=== PATIENT | male | born 1940 | race Caucasian/White ===

== ENCOUNTER 2016-11-06 19:30 | Observation (INO) | payer OTHER ==
[2016-11-06] MEDS ORDERED: RANITIDINE 50 MG/2 ML VIAL IVP ONE (19:37)
[2016-11-06] MEDS ORDERED: methylPREDNISolone SOD SUCC 125 MG/2 ML VIAL IVP ONE (19:37)
[2016-11-06] MEDS ORDERED: NS 1,000 ML IV ONE (19:38)
--- NOTE | 2016-11-06 19:40 | EDPHY ---
H & P Time Seen by Provider: 11/06/16 19:37 HPI/ROS: CHIEF COMPLAINT: Wasp sting HISTORY OF PRESENT ILLNESS: The patient is a 76-year-old man who was stung by 10-12 wasps while he was trying to cut down the branch of a tree. This happened about a half an hour ago. He is complaining mainly of pain at the sting sites. No urticaria. No trouble breathing. He has never had any allergies in the past. He denies any heart conditions. He is mildly diaphoretic. No nausea or GI symptoms. He was stung several times on the head , a couple times on the face and then also on the foot. REVIEW OF SYSTEMS: Constitutional: denies: chills, fever, recent illness, recent injury EENTM: denies: blurred vision, double vision, nose congestion Respiratory: denies: cough, shortness of breath Cardiac: denies: chest pain, irregular heart rate, lightheadedness, palpitations Gastrointestinal/Abdominal: denies: abdominal pain, diarrhea, nausea, vomiting, blood streaked stools Genitourinary: denies: dysuria, frequency, hematuria, pain Musculoskeletal: denies: joint pain, muscle pain Skin: See HPI Neurological: denies: headache, numbness, paresthesia, tingling, dizziness, weakness Hematologic/Lymphatic: denies: blood clots, easy bleeding, easy bruising Immunologic/allergic: denies: HIV/AIDS, transplant EXAM: GENERAL: Diaphoretic, significant distress HEAD: Atraumatic, normocephalic. EYES: Pupils equal round and reactive to light, extraocular movements intact, sclera anicteric, conjunctiva are normal. ENT: TMs normal, nares patent, oropharynx clear without exudates. Moist mucous membranes. NECK: Normal range of motion, supple without lymphadenopathy or JVD. LUNGS: Breath sounds clear to auscultation bilaterally and equal. No wheezes rales or rhonchi. HEART: Regular rate and rhythm without murmurs, rubs or gallops. ABDOMEN: Soft, nontender, normoactive bowel sounds. No guarding, no rebound. No masses appreciated. BACK: No CVA tenderness, no spinal tenderness, step-offs or deformities EXTREMITIES: Normal range of motion, no pitting or edema. No clubbing or cyanosis. NEUROLOGICAL: Cranial nerves II through XII grossly intact. Normal speech, normal gait. 5/5 strength, normal movement in all extremities, normal sensation PSYCH: Normal mood, normal affect. SKIN: Several small sites of stay insect bite/sting. Mild erythema on foot and chest. Source: Patient Exam Limitations: No limitations - Medical/Surgical History Hx Asthma: No Hx Chronic Respiratory Disease: No Hx Diabetes: No Hx Cardiac Disease: No Hx Renal Disease: No Hx Cirrhosis: No Hx Alcoholism: No - Family History Significant Family History: No pertinent family hx - Social History Alcohol Use: Sober Drug Use: None Constitutional: Initial Vital Signs Temperature (C) 36.6 C 11/06/16 19:52 Heart Rate 160 H 11/06/16 19:52 Respiratory Rate 24 H 11/06/16 19:52 Blood Pressure 74/60 L 11/06/16 19:52 O2 Sat (%) 92 11/06/16 19:52 O2 Delivery Mode Nasal Cannula O2 (L/minute) 2 Allergies/Adverse Reactions: No Known Allergies Allergy (Verified 11/06/16 21:16) Home Medications: Medication Instructions Recorded Aspirin [Aspirin 81mg (*)] 81 mg PO EVERY OTHER DAY 11/06/16 metroNIDAZOLE [Metrogel] 1 gm TP DAILY 11/06/16 Medical Decision Making - Diagnostics EKG Interpretation: An EKG obtained and was read and documented in trace view. Please see trace view for full reading and report. Atrial fibrillation rate of 140, right bundle. Patient was already aware of the right bundle but states never had atrial fibrillation before. ED Course/Re-evaluation: The patient is in shock. He is tachycardic and hypotensive. IV was began and he was started on IV fluids, epinephrine, Solu-Medrol and antihistamines. His blood pressure is improving. He states that he is starting to feel better. 8:30 p.m. the patient is feeling much better. His blood pressure is currently 150/90. Heart rate is 120 and regular. I am concerned that he had a severe reaction and may have rebound when the medication wears off. I recommended admission and he agrees. I discussed the case with Dr. Juan Chatman and Dr. Estrada. They will admit to the medical service. They do not recommend anticoagulation at this time. Differential Diagnosis: Partial list of the Differential diagnosis considered include but were not limited to; anaphylaxis, envenomation and although unlikely based on the history and physical exam, I also considered sepsis, head injury. Critical Care Time: Critical care time spent by me, Dr. Beach exclusive with this patient was 35 minutes, exclusive of the PA time exclusive of procedures. The organ system that was at risk was cardiovascular and I gave IV fluids, monitoring medications and admission to prevent worsening of the patient's condition - Data Points Laboratory Results: Laboratory Results 11/06/16 19:50 11/06/16 19:50 Medications Given: Discontinued Medications Diphenhydramine HCl (Benadryl Injection) 25 mg IVP EDNOW ONE Stop: 11/06/16 19:38 Last Admin: 11/06/16 19:51 Dose: 25 mg Enoxaparin Sodium (Lovenox) 40 mg SC DAILY [facility] Stop: 05/06/17 08:59 Last Admin: 11/07/16 08:45 Dose: 40 mg Epinephrine HCl (Epinephrine) 0.3 mg IM EDNOW ONE Stop: 11/06/16 19:38 Last Admin: 11/06/16 19:51 Dose: 0.3 mg Sodium Chloride (Ns) 1,000 mls @ 0 mls/hr IV EDNOW ONE; Wide Open PRN Reason: Protocol Stop: 11/06/16 19:39 Last Admin: 11/06/16 19:50 Dose: 1,000 mls Sodium Chloride (Ns) 1,000 mls @ 100 mls/hr IV CONT CHATA Stop: 05/05/17 22:29 Last Admin: 11/06/16 23:26 Dose: 1,000 mls Lorazepam (Ativan) 0.5 - 1 mg PO Q8HRS PRN PRN Reason: Anxiety, Able to Take PO Stop: 05/05/17 22:15 Last Admin: 11/07/16 03:02 Dose: 0.5 mg Methylprednisolone Sodium Succinate (Solu-Medrol) 125 mg IVP EDNOW ONE Stop: 11/06/16 19:38 Last Admin: 11/06/16 19:50 Dose: 125 mg Prednisone (Prednisone) 60 mg PO DAILY [facility] Stop: 05/06/17 08:59 Last Admin: 11/07/16 08:46 Dose: 60 mg Ranitidine HCl (Zantac) 50 mg IVP EDNOW ONE Stop: 11/06/16 19:38 Last Admin: 11/06/16 19:51 Dose: 50 mg Departure - Departure Disposition: [facility] Acute Clinical Impression: Acute anaphylaxis Qualifiers: Encounter type: initial encounter Qualified Code(s): T78.2XXA - Anaphylactic shock, unspecified, initial encounter Condition: Fair
[2016-11-06 19:59] LABS: % IMMATURE GRANULYOCYTES 0.3 % (0.0-1.1); ABSOLUTE IMMATURE GRANULOCYTES 0.02 10^3/uL (0.00-0.10); ADD DIFF? NO; ADD MORPH? NO; ADD SCAN? NO; ATYPICAL LYMPHOCYTE FLAG 20 (0-99); FRAGMENT RBC FLAG 0 (0-99); HEMATOCRIT 51.9 % (40.0-51.0); HEMOGLOBIN 17.5 g/dL (13.7-17.5); LEFT SHIFT FLG 0 (0-99); LIPEMIA HEMOLYSIS FLAG 80 (0-99); MEAN CELL HEMOGLOBIN 32.2 pg (27.9-34.1); MEAN CELL HEMOGLOBIN CONCENTR. 33.7 g/dL (32.4-36.7); MEAN CELL VOLUME 95.6 fL (81.5-99.8); MEAN PLATELET VOLUME 10.4 fL (8.7-11.7); PLATELET CLUMPS FLAG 0 (0-99); PLATELET COUNT 212 10^3/uL (150-400); RED BLOOD CELL COUNT 5.43 10^6/uL (4.40-6.38); RED CELL DISTRIBUTION WIDTH 13.2 % (11.5-15.2)
[2016-11-06 20:35] LABS: ANION GAP 18 mEq/L (8-16); CALCIUM 9.8 mg/dL (8.5-10.4); CARBON DIOXIDE 19 mEq/l (22-31); CHLORIDE 103 mEq/L (97-110); CREATININE 1.1 mg/dL (0.7-1.3); GLOMERULAR FILTRATION RATE > 60; GLUCOSE 105 mg/dL (70-100); POTASSIUM 3.5 mEq/L (3.5-5.2); SODIUM 140 mEq/L (134-144)
--- NOTE | 2016-11-06 20:59 | CPEKG ---
Heart Rate: 141 RR Interval: 426 QRSD Interval: 148 QT Interval: 352 QTC Interval: 539 QRS [place]: 58 T Wave [place]: 86 EKG Severity - ABNORMAL ECG - EKG Impression: ATRIAL FIBRILLATION, V-RATE 111-172 EKG Impression: RIGHT BUNDLE BRANCH BLOCK EKG Impression: ST DEPRESSION, CONSIDER ISCHEMIA, ANT-LAT LDS Electronically Signed By: Doc Beach 06-Nov-2016 21:13:08
[2016-11-06] MEDS ORDERED: HYDROCODONE/APAP 5/325 TAB PO PRN (22:16)
[2016-11-06] MEDS ORDERED: ACETAMINOPHEN 325 MG TAB PO PRN (22:16)
[2016-11-06] MEDS ORDERED: ONDANSETRON 4 MG/2 ML VIAL IVP PRN (22:16)
[2016-11-06] MEDS ORDERED: ONDANSETRON DISINTEGRATING 4 MG TAB PO PRN (22:16)
[2016-11-06] MEDS ORDERED: diphenhydrAMINE 25 MG CAP PO PRN (22:16)
[2016-11-06] MEDS ORDERED: LORazepam 0.5 MG TAB PO PRN (22:16)
[2016-11-06] MEDS ORDERED: NS 1,000 ML IV SCH (22:30)
--- NOTE | 2016-11-06 22:47 | CPEKG ---
Heart Rate: 144 RR Interval: 417 QRSD Interval: 144 QT Interval: 344 QTC Interval: 533 QRS [place]: 66 T Wave [place]: 72 EKG Severity - ABNORMAL ECG - EKG Impression: ATRIAL FIBRILLATION EKG Impression: RIGHT BUNDLE BRANCH BLOCK Electronically Signed By: Rosa Mosqueda 07-Nov-2016 08:43:18
--- NOTE | 2016-11-07 00:12 | GHP ---
[f rep st] HISTORY AND PHYSICAL DATE OF SERVICE: 11/06/16 SOURCE: Patient provides history. Appears reliable. CHIEF COMPLAINT: "My legs were feeling weak," wasp stings. HISTORY OF PRESENT ILLNESS: This is a pleasant 76-year-old gentleman with past medical history significant for asymptomatic BPH, rosacea, and history of right bundle branch block, otherwise healthy, who presents to the emergency department today shortly following approximately a dozen wasps stings this afternoon. Patient states that he was cutting down branches when it was noted that he seemed to have stirred up wasps likely coming from the ground. Patient states he was bitten multiple times on the top of his head, his face and arms and legs. Patient denies any issues with shortness of breath, chest pain, palpitations, or tongue swelling. Patient did have a small amount of swelling actual sting sites. Patient states he just was not feeling very well, and so he drove himself to the emergency department. By the time he arrived to the ER , he states that he just laid down on the floor because he felt so weak. Patient was wheeled back into the emergency department on the stretcher. He was noted to be tachycardic in the 170s, sinus on the monitors, down to 150s heart rate. Patient denied any chest pain or palpitations during this episode. No lightheadedness. Patient was given epinephrine, Benadryl, Pepcid and Solu Medrol in the emergency department. He was also noted to be hypotensive with BP in the 70s/diastolic in the 60s. He was given IV fluid bolus, and following all these treatments, his blood pressures did improve to the 140s/70s with improvement also of his tachycardia to the 120s. Heart rate did increase again to the 150s and repeat EKG was noted to show Afib with RVR. Heart rate remained variable but the patient was noted to have P waves on the fountain attendant. Patient reports that overall he has been feeling better since receiving treatment as noted above. He continues to deny any chest pain, palpitations, shortness of breath. He has had some increased swelling at the bite sites, particularly on the right cheek. REVIEW OF SYSTEMS: GENERAL: Patient reports that he was initially feeling flushed earlier following the bites, but currently denies any fevers or chills. SKIN: Swelling surrounding the sting sites. Otherwise, denies any other rashes or sores. ENT: Patient with chronic rhinorrhea and some postnasal drip. No sore throat. CV: No chest pain, palpitations. RESPIRATORY: No shortness of breath or cough. GASTROINTESTINAL: No nausea, vomiting, abdominal pain or diarrhea. GENITOURINARY: Patient with history of BPH but states that he is asymptomatic. No dysuria or hematuria. MUSCULOSKELETAL: Patient reports intermittent muscle spasms of the right sternocleidomastoid, but overall denies any myalgias or other joint pain at this time. NEUROLOGIC: Patient reports some numbness and tingling at the sting sites, but denies any otherwise numbness, tingling or focal weakness. Denies any headache currently. PSYCH: Patient does report he is feeling a little anxious with all the acute medical issues, but otherwise no history of depression or anxiety. Remainder of review of systems negative except as noted above. ALLERGIES: No known drug allergies. HOME MEDICATIONS: Aspirin 81 mg every other day, and Metrogel applied topically to the face for rosacea daily. PAST MEDICAL HISTORY: Significant for right bundle branch block, history of rosacea, and BPH. PAST SURGICAL HISTORY: Significant for bilateral inguinal hernias. FAMILY HISTORY: Father with history of mitral valve prolapse and distant relatives with history of heart disease but no immediate family members with coronary artery disease. SOCIAL HISTORY: Patient lives alone. He does have friends locally who provide support. He is a retired statistics microbiology lab analyst. He does drink occasional alcohol , mostly wine with most meals in the evening. Denies any tobacco or drugs. CODE STATUS: Patient without advance directive, but states his medical power of family law attorney is Lindy Sheridan who is a friend. Code status is full. PHYSICAL EXAMINATION: VITALS: On arrival, temperature 36.6, blood pressure 152 /104, heart rate 123, respiratory rate 22, O2 SAT 94% on 2 Liters by nasal cannula. Current vitals: Blood pressure 127/63, heart rate 150s at bedside, respiratory rate 18, O2 SAT 96% on room air. GENERAL: No acute distress. Pleasant, elderly male sitting up on gurney. HEENT: Normocephalic, atraumatic. Patient does have a few circular areas of erythema with central hyperemia at sites of reported stings right face with erythema over the right cheek. Patient has bilateral eyelid swelling. Patient also has additional areas of erythema at sting sites on his bilateral forearms and bilateral ankles. No other evidence of rashes or sores. ENT: Mucous membranes appear slightly dry. No oropharyngeal erythema. No tongue swelling. No nasal discharge. NECK: Supple. Trachea midline. CV: Tachycardic, slightly irregularly irregular. Unable to appreciate murmurs, limited secondary to tachycardia. No chest wall tenderness to palpation. RESPIRATORY: Unlabored breathing. LUNGS: Clear to auscultation bilaterally. No wheezes, rales or rhonchi. ABDOMEN: Positive bowel sounds. Soft, nontender to palpation. No rebound, guarding or masses. GENITOURINARY: No suprapubic tenderness to palpation. No CA tenderness. EXTREMITIES: No cyanosis, clubbing or edema appreciated. MUSCULOSKELETAL: Strength 4/5 generally. Patient does require minimal assistance sitting up. No focal deficits. NEUROLOGIC: Cranial nerves 2-12 are intact, symmetric bilaterally. Patient is awake, alert, oriented x3. Moves all extremities. Strength intact but generalized weakness as noted above. PSYCHIATRIC: Patient does appear a little anxious but otherwise pleasant, cooperative. LABORATORY STUDIES: WBC 7.0. H and H 17.5 and 51.9, MCV 95.6, platelet count 212. Sodium is 140, potassium 3.5, chloride 103, C02 19, BUN 22, creatinine 1.1. EGFR is greater than 160. Glucose 105. Calcium 9.8. TSH pending. EKG reviewed by myself showing Afib with RVR and right bundle branch block, some ST depression, likely related to tachycardia. No previous EKGs for comparison. ASSESSMENT AND PLAN: Sharmila 76-year-old gentleman who presents following multiple wasp stings. 1. Anaphylaxis: Patient with tachycardia, hypotension. He has received IV fluids, epinephrine, Benadryl, Pepcid and Solu Medrol. Will continue with steroid therapy and Benadryl p.r.n. Patient denies any dyspnea or chest pain at this time. He has subsequently developed atrial fibrillation with rapid ventricular response with questionable conversion back to sinus tach. Will continue to monitor patient closely in the PCU on the continuous pulse ox and cardiac monitors. 2. Atrial fibrillation with rapid ventricular response: Patient denies any chest pain, palpitations. No previous history of atrial fibrillation. Possibly related to recent anaphylaxis and envenomation from wasp stings versus epinephrine. Will continue to monitor patient closely. Will repeat EKG once the patient arrives to the floor, to see if patient has converted to sinus tach. Patient may require consideration for use of rate control. Blood pressures at this time are acceptable. Will hold off on therapeutic anticoagulation for now. Also will obtain an echocardiogram in the morning. 3. Hypotension. This is resolved, status post fluids--epinephrine and treatment for anaphylaxis. 4. Wasp bites. Supportive care. Continue Benadryl and treatment as above. 5. History of benign prostatic hypertrophy: Patient reports he is asymptomatic. Will continue to monitor with placement on IV fluids. 6. Fluids/Electrolytes/Nutrition: Will continue patient with IV fluid hydration overnight and diet as tolerated. Electrolyte replacement p.r.n. Will monitor in the morning. 7. Prophylaxis: SCDs as tolerated with wasp bites on lower extremities. Will place patient on prophylactic dosing of Lovenox for now pending further evaluation of the atrial fibrillation. 8. Cor: Patient is a full code. His MDPOA is Lindy Demint. DISPOSITION: Patient has been admitted to observation at this time on PCU. /[id number]/MODL MTDD
[2016-11-07 05:19] LABS: % IMMATURE GRANULYOCYTES 0.5 % (0.0-1.1); ABSOLUTE IMMATURE GRANULOCYTES 0.05 10^3/uL (0.00-0.10); ADD DIFF? NO; ADD MORPH? NO; ADD SCAN? NO; ATYPICAL LYMPHOCYTE FLAG 0 (0-99); FRAGMENT RBC FLAG 0 (0-99); HEMATOCRIT 47.3 % (40.0-51.0); HEMOGLOBIN 16.2 g/dL (13.7-17.5); LEFT SHIFT FLG 10 (0-99); LIPEMIA HEMOLYSIS FLAG 90 (0-99); MEAN CELL HEMOGLOBIN 32.3 pg (27.9-34.1); MEAN CELL HEMOGLOBIN CONCENTR. 34.2 g/dL (32.4-36.7); MEAN CELL VOLUME 94.2 fL (81.5-99.8); MEAN PLATELET VOLUME 10.7 fL (8.7-11.7); PLATELET CLUMPS FLAG 0 (0-99); PLATELET COUNT 166 10^3/uL (150-400); RED BLOOD CELL COUNT 5.02 10^6/uL (4.40-6.38); RED CELL DISTRIBUTION WIDTH 13.2 % (11.5-15.2)
[2016-11-07 05:42] LABS: ANION GAP 12 mEq/L (8-16); CALCIUM 8.7 mg/dL (8.5-10.4); CARBON DIOXIDE 21 mEq/l (22-31); CHLORIDE 105 mEq/L (97-110); CREATININE 0.9 mg/dL (0.7-1.3); GLOMERULAR FILTRATION RATE > 60; GLUCOSE 131 mg/dL (70-100); POTASSIUM 3.9 mEq/L (3.5-5.2); SODIUM 138 mEq/L (134-144)
[2016-11-07] MEDS ORDERED: ENOXAPARIN 40 MG/0.4 ML SYR SC SCH (09:00)
[2016-11-07] MEDS ORDERED: predniSONE 20 MG TAB PO SCH (09:00)
[2016-11-07 14:01] VITALS: BP 150/75; PULSE 75; RESP 20; TEMP 98.2; O2SAT 93
--- NOTE | 2016-11-07 15:14 | GDS ---
[f rep st] DISCHARGE SUMMARY ACUTE DIAGNOSES: 1. Acute anaphylaxis secondary to evenomation due to wasps. 2. Paroxysmal atrial fibrillation with rapid ventricular response, secondary to excess stimulation of envenomation and epinephrine. 3. Hypotension and tachycardia secondary to epinephrine and envenomation. CHRONIC DIAGNOSIS: History of benign prostatic hypertrophy. CONSULTATIONS: None. PROCEDURES: None. HOSPITAL COURSE: A 76-year-old male, who on the evening of admission was stung by numerous wasps ab out the head and neck. He felt weak and tired, and presented to the emergency department where he w as noted to be tachycardic and hypotensive. He received epinephrine, Solu-Medrol, and had taken Julian adryl at home. He also required fluid resuscitation. Blood pressure, pulse, and respirations all r eturned to normal, though he remained quite nervous and agitated, with slightly increased blood pres sure throughout the late evening and impress associate. On the day of admission, he was much improved. During this time, he did not experience any chest pain. The exam did not show any wheezing and he did not have signs of airway obstruction. Monitor following admission showed only sinus rhythm without ectopy. The atrial fibrillation is fel t to be proximal secondary to excess stimulation with epinephrine and steroids. DISCHARGE MEDICATIONS: These will be his same as his usual medications without changes. Metronidaz ole gel to be used topically, aspirin 81 mg daily. PLAN: The gentleman will be discharged to home, under his own care. He lives with his and matias l be accompanied by her. His followup will be with his PCP, Dr. Alcides Cat. Matters to be addressed at the first followup, are reassessment of the gentleman as to whether there are other episodes of atrial fibrillation, not induced by excess stimulation. Should there be any suspicion, further evaluation should be made. Follow up with Dr. Cat is suggested within 2 weeks . TIME: This discharge required 40 minutes, greater than 50% to clinical mental health counselor and coordinate his care, and explain matters to the patient. All questions were answered from the patient. /[id number]/MODL
--- NOTE | 2016-11-07 17:09 | ECHO ---
[id number] + + [address] : : [place] [address] : : [phone] + + Adult Echocardiographic Report + + :Name: ANNAMARIE WALTER LStudy Date: 11/07/2016 09:41 AM : : Hospital Admission Number: [id number] : :: 1940 Gender: Male Height: 70 in : :Age: 76 yrs Race: WH Weight: 146 lb : :Reason For Study: Atrial Fibrillation : : BSA: 1.8 meters2: + + MMode/2D Measurements \T\ Calculations IVSd: 1.00 cm LVIDd: 4.6 cm FS: 51.2 % Ao root diam: LVPWd: 0.84 cm LVIDs: 2.3 cm EDV(Teich): 4.0 cm 99.2 ml LA dimension: ESV(Teich): 3.7 cm 17.4 ml EF(Teich): 82.5 % LVLd ap4: 8.1 cm SV(MOD-sp4): EDV(MOD-sp4): 60.0 ml 82.0 ml LVLs ap4: 6.8 cm ESV(MOD-sp4): 22.0 ml EF(MOD-sp4): 73.2 % Normal Measurement Values: + + :LVIDd (3.5-5.7cm) IVSd (0.6-1.1cm) LVPWd (0.6-1.1cm) Aortic Root (2.0-3.7cm)Left Atrium (1.5-4.0cm): :LV Vol(d) (76-115ml) LV Vol(s) (29-48ml) Ejec Fraction (50-65%)PV Jesus (0.6- 1.2m/s) TV Jesus (0.4-1.0m/s) : :MV E Jesus (0.8-1.0m/s)MV A Jesus (0.3-1.0m/s)LVOT Jesus (0.7-1.2m/s) Asc Ao Jesus ( 0.9-1.8m/s) : + + Doppler Measurements \T\ Calculations MV E max jesus: 61.2 cm/sec Ao mean P.8 mmHg TR max jesus: 276.2 cm/sec MV A max jesus: 75.5 cm/sec Ao V2 mean: 90.2 cm/sec TR max P.5 mmHg MV E/A: 0.81 Ao V2 VTI: 25.4 cm RAP systole: 5.0 mmHg RVSP(TR): 35.5 mmHg Left Ventricle The left ventricle is normal in size. There is normal left ventricular wall thickness. The left ventricle is hyperdynamic. Ejection Fraction = 70-75%. There is Doppler evidence for diastolic dysfunction. No regional wall motion abnormalities noted. Right Ventricle The right ventricle is normal in size and function. Atria The left atrial size is normal. The right atrium is mildly dilated. The interatrial septum is intact with no evidence for an atrial septal defect. Mitral Valve The mitral valve is normal in structure and function. There is no evidence of mitral valve prolapse. There is no mitral valve stenosis. There is trace mitral regurgitation. Tricuspid Valve Normal tricuspid valve. There is mild tricuspid regurgitation. Right ventricular systolic pressure is normal. Aortic Valve The aortic valve is trileaflet. The aortic valve opens well. There is no aortic stenosis. Trace aortic regurgitation. Pulmonic Valve The pulmonic valve is normal in structure and function. There is no pulmonic valvular regurgitation. Great Vessels The aortic root is normal size. Pericardium/Pleural Trivial anterior pericardial effusion vs. fat pad. Conclusion A complete two-dimensional transthoracic echocardiogram was performed (2D, M-mode, Doppler and color flow Doppler). The left ventricle is hyperdynamic. Ejection Fraction = 70-75%. Normal wall motion. The right atrium is mildly dilated. Normal appearing valves. There is mild tricuspid regurgitation. Right ventricular systolic pressure is normal. Trace aortic regurgitation. Trivial anterior pericardial effusion vs. fat pad. There is Doppler evidence for diastolic dysfunction. Final Reading Physician: Wesly Honeycutt signed on 11/07/2016 05:08 PM Ordering Physician: Celine Medina Performed By: Tracey Schreiber, [facility]
== END 2016-11-07 15:28 | disposition home or self-care (01) ==
LOC: F2W 22:30
PROVIDERS: ADMIT Student in an Organized Health Care Education/Training Program; ATTEND Internal Medicine Pulmonary Disease
DX: T63.461A Toxic effect of venom of wasps, accidental (unintentional), initial encounter (principal); I48.0 Paroxysmal atrial fibrillation; I95.9 Hypotension, unspecified; R00.0 Tachycardia, unspecified; Y93.H2 Activity, gardening and landscaping; I45.10 Unspecified right bundle-branch block; N40.0 Benign prostatic hyperplasia without lower urinary tract symptoms
CPT/HCPCS: 93005; 93306; G0378; J1200; J1650; J2780; 96374

== ENCOUNTER → 2017-09-03 | Outpatient (CLI) | payer OTHER | LOC: BHFA 11:00 | PROVIDERS: ATTEND Internal Medicine Cardiovascular Disease | DX: I48.0 Paroxysmal atrial fibrillation (principal); I45.10 Unspecified right bundle-branch block; I10 Essential (primary) hypertension ==

== ENCOUNTER → 2017-09-24 | Outpatient (CLI) | payer OTHER | LOC: BHFA 10:45 | PROVIDERS: ATTEND Internal Medicine Cardiovascular Disease | DX: I48.0 Paroxysmal atrial fibrillation (principal); I45.10 Unspecified right bundle-branch block ==

== ENCOUNTER → 2017-11-03 | Outpatient (CLI) | payer OTHER | DX: I48.91 Unspecified atrial fibrillation (principal) ==